=== PATIENT | male | born 1985 | race Caucasian/White ===

== ENCOUNTER 2017-04-18 08:44 | Emergency (ER) | payer MEDICAID ==
[~2017-04-18] VITALS: Ht 167.6 cm; Wt 81.5 kg
[2017-04-18 08:47] VITALS: Ht 167.6 cm; Wt 81.5 kg
[2017-04-18] MEDS ORDERED: FLUORESCEIN STRIP LEFT EYE ONE (09:30)
[2017-04-18] MEDS ORDERED: TETRACAINE 0.5% 4 ML OPH LEFT EYE ONE (09:30)
[2017-04-18] MEDS ORDERED: KETO5DRO71 OP (09:50)
--- NOTE | 2017-04-18 10:22 | ERD ---
ER Documentation Chief Complaint Date/Time DATE: 04/18/17 TIME: 10:14 Chief Complaint left eye pain/itchyness/watery x 1 year intermittent HPI 31-year-old male complaining of left eye itchiness and watering 1 year. Patient states that he has not used medications on symptoms. Denies contacts or glasses use. Does not feel like there is anything in his eye. The irritation and symptoms are constant. ROS All systems reviewed and are negative except as per history of present illness. Medications Home Meds Active Scripts Ketotifen Fumarate (ZADITOR) 5 Ml Drops, 1 ML OP BID, #1 BOTTLE Prov:BOBBY LOPEZ PA-C 04/18/17 PMhx/Soc History of Surgery: No Anesthesia Reaction: No Hx Neurological Disorder: No Hx Respiratory Disorders: No Hx Cardiac Disorders: No Hx Psychiatric Problems: No Hx Miscellaneous Medical Probl: No Hx Alcohol Use: Yes (OCCAS) Hx Substance Use: No Hx Tobacco Use: No Smoking Status: Never smoker Physical Exam Vitals Vital Signs Date Time Temp Pulse Resp B/P Pulse Ox O2 Delivery O2 Flow Rate FiO2 04/18/17 08:47 97.6 86 18 145/97 98 Physical Exam GENERAL: The patient is well-appearing, well-nourished, in no acute distress HEENT: Pupils equal round and reactive to light. Slight chemosis noted of left lateral eye. Extraocular movements intact. No soft tissue swelling or erythema to the surrounding ocular tissue. Mild erythema noted to the lateral eye. NECK: C-spine is soft and supple. There is no meningismus. There is no cervical lymphadenopathy. CHEST: Clear to auscultation bilaterally. There are no rales, wheezes or rhonchi. HEART: Regular rate and rhythm. No murmurs, clicks, rubs or gallops. No S3 or S4. Results 24 hrs Current Medications Medications (Trade) Dose Ordered Sig/Zac Route PRN Reason Start Time Stop Time Status Last Admin Dose Admin Fluorescein Sodium (Hagpk-D-Gwwfv) 1 strip ONCE ONCE LEFT EYE 04/18/17 09:30 04/18/17 09:31 DC Tetracaine HCl (Tetracaine 0.5% Steri-Unit Sisi) 1 drop ONCE ONCE LEFT EYE 04/18/17 09:30 04/18/17 09:31 DC Procedures/MDM ER course: Visual Acuity: Right: 20/20 Left: 20/100 Bilateral: 20/20 Fluoro Stain: No corneal abrasions or foreign bodies appreciated on stain. MDM: 31-year-old male complaining of left eye irritation. Low suspicion for retained foreign body. Suspicion for bacterial conjunctivitis or orbital/ periorbital cellulitis. Patient does have ecchymosis noted on exam so he likely has allergic reaction. Patient will be given allergy eyedrops and recommended to follow-up with job placement specialist. Patient is told symptoms change or worsen to return to the ER. Patient is discharged with strict ER precautions. Departure Diagnosis: Primary Impression: Chemosis Condition: Stable Patient Instructions: Conjunctivitis, Allergic (Child) Referrals: [facility] Hours: Mon - Fri 9:00 AM - 5:00 PM Additional Instructions: FOLLOW UP WITH YOUR PRIMARY CARE PHYSICIAN TOMORROW.Return to this facility if you are not improving as expected. BOBBY LOPEZ PA-C Apr 18, 2017 10:22
== END 2017-04-18 09:57 | disposition home or self-care (01) ==
LOC: FTE 08:44
DX: H11.422 Conjunctival edema, left eye (principal)
CPT/HCPCS: Z7502; Z7610; 99283

== ENCOUNTER 2018-09-09 14:39 | Emergency (ER) | payer MEDICAID, OTHER ==
[~2018-09-09] VITALS: Wt 77.4 kg
[~2018-09-09 14:39] MED LIST: KETO5DRO71 OP
[2018-09-09 15:11] VITALS: BP 143/80; PULSE 93; RESP 18
[2018-09-09] MEDS ORDERED: OXYC-279 PO (17:25)
[2018-09-09] MEDS ORDERED: ACYC800T5 PO (17:25)
[2018-09-09] MEDS ORDERED: NAR2I NS (17:28)
--- NOTE | 2018-09-10 14:22 | ERD ---
ER Documentation Chief Complaint Chief Complaint rash and pain to right rib area x 10 days HPI 33-year-old male with history of herpes zoster presents with a rash over his right mid rib cage area. Patient states that he had an outbreak of shingles in the past and this is similar. States that it started about 2 weeks ago and was preceded by pain in that area. Currently states that the pain is intermittent, made worse with palpation. Denies taking any medications. Denies fevers, chills, trauma to that area, nausea, vomiting, diarrhea. Denies other medical history. Denies allergies. Denies medications. Denies surgeries. Denies alcohol, tobacco, drug use. Up to date on vaccines. ROS All systems reviewed and are negative except as per history of present illness. Medications Home Meds Active Scripts Naloxone Hcl 1mg/1mL 2mL syr (Narcan 1mg/1mL 2mL syr) 1 Mg/Ml Soln, 1 ML NS .Q2- 3 MIN PRN for OPIOID OVERDOSE, #2 SYR Dispense with mucosal atomizer devices. Using mucosal atomizer devices spray 1mL into each nostril. Repeat after 2-3 minutes if no or minimal response. Prov:NOMAN VELOZ 09/09/18 Acyclovir* (Zovirax*) 800 Mg Tablet, 800 MG PO 5 TIMES DAILY for herpes zoster for 7 Days, TAB Prov:NOMAN VELOZ 09/09/18 Oxycodone HCl/Acetaminophen (Percocet 5-325 mg Tablet) 1 Each Tablet, 1 EACH PO Q6 for varicella zoster, #14 TAB Prov:NOMAN VELOZ 09/09/18 Ketotifen Fumarate (ZADITOR) 5 Ml Drops, 1 ML OP BID, #1 BOTTLE Prov:BOBBY LOPEZ PA-C 04/18/17 PMhx/Soc History of Surgery: No Anesthesia Reaction: No Hx Neurological Disorder: No Hx Respiratory Disorders: No Hx Cardiac Disorders: No Hx Psychiatric Problems: No Hx Miscellaneous Medical Probl: No Hx Alcohol Use: Yes (OCCAS) Hx Substance Use: No Hx Tobacco Use: No Smoking Status: Never smoker FmHx Family History: No diabetes, No coronary disease, No other Physical Exam Vitals Vital Signs Date Temp Pulse Resp B/P (MAP) Pulse Ox O2 O2 Flow FiO2 Time Delivery Rate 2/19/19 96.9 93 18 143/80 97 15:11 (101) Physical Exam Const: No acute distress Head: Atraumatic Eyes: Normal Conjunctiva ENT: Normal External Ears, Nose and Mouth. Neck: Full range of motion. No meningismus. Resp: Clear to auscultation bilaterally Cardio: Regular rate and rhythm, no murmurs Abd: Soft, non tender, non distended. Normal bowel sounds Skin: Vesicular rash with erythematous base noted to right lateral thoracic area with no ocular involvement. Ext: No cyanosis, or edema Neur: Awake and alert Psych: Normal Mood and Affect Procedures/MDM 33-year-old male with history of herpes zoster presents with a rash over his right mid rib cage area. Patient states that he had an outbreak of shingles in the past and this is similar. States that it started about 2 weeks ago and was preceded by pain in that area. Currently states that the pain is intermittent, made worse with palpation. Denies taking any medications. Denies fevers, chills, trauma to that area, nausea, vomiting, diarrhea. Presentation is concerning consistent with herpes zoster. Patient was given Rx for acyclovir as well as Percocet for pain as this is the recommended pain medication for herpes zoster. In addition patient was given prescription for naloxone and instructed regarding its use in case of accidental opiate overdose. I havel low suspicion for herpes zoster ophthalmicus or other emergent condition. Patient discharged with strict ER precautions. Patient advised to follow up with PMD. All questions answered at discharge. Departure Diagnosis: Primary Impression: Shingles Herpes zoster complications: without complications Qualified Codes: B02.9 - Zoster without complications Condition: Stable Patient Instructions: Shingles (Herpes Zoster) Referrals: [facility] YOU HAVE RECEIVED A MEDICAL SCREENING EXAM AND THE RESULTS INDICATE THAT YOU DO NOT HAVE A CONDITION THAT REQUIRES URGENT TREATMENT IN THE EMERGENCY DEPARTMENT. FURTHER EVALUATION AND TREATMENT OF YOUR CONDITION CAN WAIT UNTIL YOU ARE SEEN IN YOUR DOCTORS OFFICE WITHIN THE NEXT 1-2 DAYS. IT IS YOUR RESPONSIBILITY TO MAKE AN APPOINTMENT FOR FOLOW-UP CARE. IF YOU HAVE A PRIMARY DOCTOR --you should call your primary doctor and schedule an appointment IF YOU DO NOT HAVE A PRIMARY DOCTOR YOU CAN CALL OUR PHYSICIAN REFERRAL HOTLINE AT IF YOU CAN NOT AFFORD TO SEE A PHYSICIAN YOU CAN CHOSE FROM THE FOLLOWING [facility] [id number] [facility] [address] [facility] [address] [facility] [address] [facility] [address] [facility]. [facility] [address] Additional Instructions: FOLLOW UP WITH YOUR PRIMARY CARE PHYSICIAN TOMORROW.Return to this facility if you are not improving as expected. Do not come into contact with your child as they can contract it. NOMAN VELOZ Sep 10, 2018 14:22
== END 2018-09-09 18:00 | disposition home or self-care (01) ==
LOC: FTE 14:39
DX: B02.9 Zoster without complications (principal)
CPT/HCPCS: 99283